=== PATIENT | male | born 1985 | race Caucasian/White ===

== ENCOUNTER 2020-06-03 15:07 | Emergency (ER) | payer OTHER ==
[~2020-06-03] VITALS: Ht 172.7 cm; Wt 74.7 kg
--- NOTE | 2020-06-03 15:43 | REP ---
INDICATION: trauma/pain COMPARISON: None. TECHNIQUE: Five views right knee. FINDINGS: There is no evidence of acute fracture, dislocation, or intrinsic bone disease.Joint spaces are unremarkable. I do not see radiographic evidence of a joint effusion. IMPRESSION: No fracture or dislocation. <Electronically signed by Praveen Thomason > 06/03/20 0503
[2020-06-03 17:37] VITALS: BP 125/68
== END 2020-06-03 17:49 | disposition home or self-care (01) ==
LOC: M ED 15:07
DX: M25.561 Pain in right knee (principal)